=== PATIENT | male | born 1960 | race Caucasian/White ===

== ENCOUNTER 2017-06-12 02:25 | Emergency (ER) | payer OTHER ==
[~2017-06-12] VITALS: Ht 177.8 cm; Wt 90.7 kg
--- NOTE | ~2017-06-12 | EKG ---
[address] [employer] [place] [address] ELECTROCARDIOGRAM REPORT Name: CLEO GALICIA Room #: DEP Amee#: [id number] Admission: 06/12/17 Attend Phys: Discharge: 06/12/17 Date of : 58 Report #: [id number] THIS REPORT FOR: //name// [facility] ED Test Date: 2017-06-12 Test Time: 03:08:40 Pat Name: CLEO GALICIA Department: Room: Gender: Online Tutor: [facility] : 1960 Requested By: Yovany Lawson Order Number: [id number] MD: Dickson Varghese Measurements Intervals [place] Rate: 56 P: 4 DC: 200 QRS: 27 QRSD: 106 T: 39 QT: 474 QTc: 458 Interpretive Statements Sinus rhythm Normal tracing No previous ECG available for comparison Electronically Signed On 06-12-2017 7:50:41 CDT by Dickson Varghese [email or web address] <ELECTRONICALLY SIGNED> By: Dickson Varghese MD, [facility] 06/12/17 0750 [id number] Dickson Varghese MD, FAC /EPI
[2017-06-12] MEDS ORDERED: NORCO 10-325 T1 EACH PO (02:38)
[2017-06-12] MEDS ORDERED: FLOMAX0.4 MG PO (02:39)
[2017-06-12] MEDS ORDERED: CIPRO500 MG PO (02:39)
[2017-06-12 03:14] LABS: HEMOGLOBIN 12.4 gm/dL (14.0-18.0); MCH 29.7 pg (26.0-34.0); MCHC 33.6 g/dL (28.0-37.0); MCV 88.6 fL (80.0-100.0); RBC 4.18 mil/uL (4.50-6.00); RDW 13.2 % (10.5-14.5); WBC 8.6 thou/uL (4.0-11.0)
[2017-06-12 03:15] LABS: ANION GAP 6 mmol/L (7-16); BUN 15 mg/dL (7-18); CALCIUM 8.8 mg/dL (8.5-10.1); CHLORIDE 104 mmol/L (98-107); CO2 29 mmol/L (21-32); CREATININE 0.9 mg/dL (0.7-1.3); GLUCOSE 115 mg/dL (74-106); POTASSIUM 3.8 mmol/L (3.5-5.1); SODIUM 139 mmol/L (136-145)
[2017-06-12 03:24] LABS: TROPONIN-I < 0.04 ng/mL (<0.04-0.07)
[2017-06-12] MEDS ORDERED: ZOFRAN ODT4 MG PO (04:05)
[2017-06-12 04:23] VITALS: BP 114/75
== END 2017-06-12 04:26 | disposition home or self-care (01) ==
LOC: ER 02:25
PROVIDERS: Emergency Medicine
DX: R42 Dizziness and giddiness (principal); F10.99 Alcohol use, unspecified with unspecified alcohol-induced disorder; Z98.890 Other specified postprocedural states